=== PATIENT | female | born 1955 | race Caucasian/White ===

== ENCOUNTER 2021-06-25 16:00 | Emergency (ER) | payer MEDICARE ==
[2021-06-25] MEDS ORDERED: TORAdol 30 mg Injection IV ONE (16:37)
--- NOTE | 2021-06-25 16:44 | ERPHSYRPT ---
- History of Present Illness Time Seen by Provider: 06/25/21 16:20 Historian: patient Exam Limitations: no limitations Patient Subjective Stated Complaint: R flank pain Triage Nursing Assessment: pt to ED c/o R flank pain 8/10 onset today at PCP of [facility]. was referred to ED if pain persisted or increased for evaluation. hematuria noted on initial urine sample given. abd tender to palp on RLQ. denies Hx kidney stones. nausea without emesis. denies bowel issues. Physician History: Patient is a 66-year-old female presents to our ED as a referral from her primary care doctor for any kidney stone work-up. Patient states she was at her primary care doctor's office today for routine visit. While in the office she developed acute onset right lower quadrant pain associated with hematuria. Patient has a history of kidney stones and states her symptoms are the same. Pain described as an ache that is localized to right lower quadrant. No radiation. Pain rated 8 out of 10. No specific worsening or improving factors. No associated trauma. No fever. Patient is nauseous. No vomiting. No diarrhea. No rash. Symptoms are mild to moderate in intensity. Patient voices no other complaints or concerns at this time. Timing/Duration: today Activities at Onset: none Quality: aching Abdominal Pain Onset Location: RUQ Pain Radiation: no radiation Severity of Pain-Max: moderate Severity of Pain-Current: mild Modifying Factors: Improves With: nothing Associated Symptoms: nausea, No chest pain, No diarrhea, No fever/chills, No headache, No heartburn, No shortness of breath, No syncope, No vomiting Previous symptoms: same symptoms as today Allergies/Adverse Reactions: No Known Drug Allergies Allergy (Unverified 06/25/21 16:41) Home Medications: Amlodipine Besylate 5 mg [Norvasc 5 mg] 5 mg PO DAILY 06/25/21 [History] Citalopram Hydrobromide [Citalopram HBr] 10 mg PO DAILY 06/25/21 [History] Metoprolol Tartrate 50 mg [Lopressor 50 MG] 50 mg PO DAILY 06/25/21 [History] Rosuvastatin Calcium [Crestor] 5 mg PO DAILY 06/25/21 [History] Topiramate [Topiramate ER] 50 mg PO DAILY 06/25/21 [History] Hx Tetanus, Diphtheria Vaccination/Date Given: No Hx Influenza Vaccination/Date Given: Yes Hx Pneumococcal Vaccination/Date Given: No Immunizations Up to Date: No Travel Risk - International Travel Have you traveled outside of the country in past 3 weeks: No - Coronavirus Screening Are you exhibiting any of the following symptoms?: No Close contact with a COVID-19 positive Pt in past 14-21 Days: No - Vaccine Status Have you recieved a Covid-19 vaccination: Yes Scientific Diver: Moderna - Vaccination Dates Date of 2cond Vaccination (if applicable): december - Review of Systems Constitutional: No Symptoms, No Fever, No Chills Eyes: No Symptoms Ears, Nose, & Throat: No Symptoms Respiratory: No Symptoms, No Cough, No Dyspnea Cardiac: No Symptoms, No Chest Pain, No Edema, No Syncope Abdominal/Gastrointestinal: No Symptoms, No Abdominal Pain, No Nausea, No Vomiting, No Diarrhea Genitourinary Symptoms: No Symptoms, No Dysuria Musculoskeletal: No Symptoms, No Back Pain, No Neck Pain Skin: No Symptoms, No Rash Neurological: No Symptoms, No Dizziness, No Focal Weakness, No Sensory Changes Psychological: No Symptoms Endocrine: No Symptoms Hematologic/Lymphatic: No Symptoms Immunological/Allergic: No Symptoms All Other Systems: Reviewed and Negative - Past Medical History Pertinent Past Medical History: Yes Cardiac History: Coronary Artery Disease, High Cholesterol, Hypertension Psycho-Social History: Anxiety, Depression - Past Surgical History Past Surgical History: Yes Cardiac: Cardiac Catheterization, Cardiac Stent Female Surgical History: Hysterectomy Other Surgical History: skin ca removal, sinus surgery - Social History Smoking Status: Never smoker Exposure to second hand smoke: No Drug Use: none Patient Lives Alone: No - Female History Hx Now: No - Nursing Vital Signs Nursing Vital Signs: Initial Vital Signs Temperature 97.0 F 06/25/21 16:06 Pulse Rate 55 L 06/25/21 16:06 Respiratory Rate 20 06/25/21 16:06 Blood Pressure 159/75 06/25/21 16:06 O2 Sat by Pulse Oximetry 100 06/25/21 16:06 Pain Scale Pain Intensity 6 - Physical Exam General Appearance: no apparent distress, alert Eye Exam: PERRL/EOMI, eyes nml inspection Ears, Nose, Throat Exam: normal ENT inspection, pharynx normal, moist mucous membranes Neck Exam: normal inspection, non-tender, supple, full range of motion Respiratory Exam: normal breath sounds, lungs clear, airway intact, No respiratory distress Cardiovascular Exam: regular rate/rhythm, normal heart sounds, normal peripheral pulses Gastrointestinal/Abdomen Exam: soft, normal bowel sounds, tenderness (Tenderness right lower quadrant.), No mass, No pulsatile mass Back Exam: normal inspection, normal range of motion, No CVA tenderness, No vertebral tenderness Extremity Exam: normal inspection, normal range of motion, pelvis stable Neurologic Exam: alert, oriented x 3, cooperative, normal mood/affect, sensation nml, No motor deficits Skin Exam: normal color, warm, dry Lymphatic Exam: No adenopathy SpO2 Interpretation: normal SpO2: 100 O2 Delivery: Room Air - Course Nursing assessment & vital signs reviewed: Yes - CT Exams Abdomen/Pelvis CT Interpretation: Tele-radiologist Report (No comps. 3 mm proximal right ureteral stone. Stone is at the level of L3 with mild hydronephrosis mild renal edema. Small hiatal hernia and mild diffuse fecal stasis.) Ordered Tests: Active Orders 24 hr Category Date Time Status IV Insertion STAT Care 06/25/21 16:37 Active ABDOMEN AND PELVIS W/0 CONTRAS [CT] Stat Exams 06/25/21 16:37 Taken CBC W DIFF Stat Lab 06/25/21 16:52 Completed CMP Stat Lab 06/25/21 16:52 Completed CULTURE,URINE Stat Lab 06/25/21 16:40 Received UA W/RFX UR CULTURE Stat Lab 06/25/21 16:40 Completed Medication Summary Generic Name Dose Route Start Last Admin Trade Name Freq PRN Reason Stop Dose Admin Sodium Chloride 1,000 mls @ 100 mls/hr 06/25/21 16:45 06/25/21 16:57 Sodium Chloride 0.9% 1000 Ml IV 07/25/21 16:44 100 mls/hr .Q10H ADAM Administration Ceftriaxone Sodium/Dextrose 1 g in 50 mls @ 100 mls/hr 06/25/21 20:23 Rocephin 1 Gm-D5w 50 Ml Bag IV 06/25/21 20:52 STAT STA Discontinued Medications Generic Name Dose Route Start Last Admin Trade Name Freq PRN Reason Stop Dose Admin Ketorolac Tromethamine 30 mg 06/25/21 16:37 06/25/21 16:57 Ketorolac Tromethamine 30 Mg/Ml Inj IV 06/25/21 16:38 30 mg STAT ONE Administration Ketorolac Tromethamine Confirm 06/25/21 16:52 Ketorolac Tromethamine 30 Mg/Ml Inj Administered 06/25/21 16:53 Dose 30 mg .ROUTE .STK-MED ONE Morphine Sulfate 4 mg 06/25/21 19:07 06/25/21 19:13 Morphine Sulfate 4 Mg/Ml Injection IV 06/25/21 19:08 4 mg STAT ONE Administration Morphine Sulfate Confirm 06/25/21 19:12 Morphine Sulfate 4 Mg/Ml Injection Administered 06/25/21 19:13 Dose 4 mg .ROUTE .STK-MED ONE Ondansetron HCl 4 mg 06/25/21 17:53 06/25/21 18:00 Ondansetron Hcl 4 Mg/2 Ml Vial IV 06/25/21 17:54 Not Given STAT ONE Ondansetron HCl 4 mg 06/25/21 17:55 06/25/21 18:01 Zofran 4 Mg/Udtablet Orally Disintegrating PO 06/25/21 17:56 4 mg STAT ONE Administration Ondansetron HCl Confirm 06/25/21 17:54 Zofran 4 Mg/Udtablet Orally Disintegrating Administered 06/25/21 17:55 Dose 4 mg .ROUTE .STK-MED ONE Lab/Rad Data: Laboratory Result Diagrams 06/25/21 16:52 06/25/21 16:52 Laboratory Results 06/25/21 06/25/21 06/25/21 Range/Units 16:52 16:52 16:40 WBC 9.2 (4.0-10.5) K/mm3 RBC 4.52 (4.1-5.4) M/mm3 Hgb 14.0 (12.0-16.0) gm/dl Hct 42.6 (35-47) % MCV 94.2 (78-100) fl MCH 31.0 (26-32) pg MCHC 32.9 (32-36) g/dl RDW 13.5 (11.5-14.0) % Plt Count 176 (150-450) K/mm3 MPV 10.4 (7.5-11.0) fl Gran % 71.0 H (36.0-66.0) % Eos # (Auto) 0.09 (0-0.5) Absolute Lymphs (auto) 2.02 (1.0-4.6) Absolute Monos (auto) 0.53 (0.0-1.3) Lymphocytes % 22.0 L (24.0-44.0) % Monocytes % 5.8 (0.0-12.0) % Eosinophils % 1.0 (0.00-5.0) % Basophils % 0.2 (0.0-0.4) % Absolute Granulocytes 6.54 (1.4-6.9) Basophils # 0.02 (0-0.4) Sodium 143 (137-145) mmol/L Potassium 3.9 (3.5-5.1) mmol/L Chloride 107 (98-107) mmol/L Carbon Dioxide 21 L (22-30) mmol/L Anion Gap 18.7 H (5-15) MEQ/L BUN 19 H (7-17) mg/dL Creatinine 0.87 (0.52-1.04) mg/dL Estimated GFR > 60.0 ML/MIN Glucose 114 H (74-106) mg/dL Calcium 11.2 H (8.4-10.2) mg/dL Total Bilirubin 0.60 (0.2-1.3) mg/dL AST 42 H (14-36) U/L ALT 34 (0-35) U/L Alkaline Phosphatase 71 (38-126) U/L Serum Total Protein 8.1 (6.3-8.2) g/dL Albumin 5.0 (3.5-5.0) g/dL Urine Color RED (YELLOW) Urine Appearance CLOUDY (CLEAR) Urine pH 7.0 (5-6) Ur Specific [place] 1.014 (1.005-1.025) Urine Protein 100 (Negative) Urine Ketones NEGATIVE (NEGATIVE) Urine Blood LARGE (0-5) Johann/ul Urine Nitrite NEGATIVE (NEGATIVE) Urine Bilirubin NEGATIVE (NEGATIVE) Urine Urobilinogen 4 (0-1) mg/dL Ur Leukocyte Esterase SMALL (NEGATIVE) Urine WBC (Auto) 51-100 (0-5) /HPF Urine RBC (Auto) >101 (0-2) /HPF U Epithel Cells (Auto) NONE (FEW) /HPF Urine Bacteria (Auto) MODERATE (NEGATIVE) /HPF Urine Culture Reflexed YES (NO) Urine Glucose NEGATIVE (NEGATIVE) mg/dL - Progress Progress: improved Progress Note: Case discussed with who advised consulting with urology. I spoke to Dr. Hansen urologist at [facility] who felt patient was appropriate for transfer. Case discussed with ED physician who accepts transfer. Plan of care discussed with patient. She agrees to transfer to [facility] for further evaluation and treatment. Patient voices no other complaints or concerns at this time. Portions of this note were created with voice recognition technology. There may be grammatical, spelling, punctuation or sound alike errors 06/25/21 20:22 - Departure Departure Disposition: Home Clinical Impression: Flank pain, UTI (urinary tract infection), Ureterolithiasis, Hydronephrosis, Hiatal hernia Condition: Stable Critical Care Time: No Referrals: FABRICE ODOM MD [Primary Care Provider] -
[2021-06-25] MEDS ORDERED: Sodium Chloride 0.9% 1000 ML 1,000 ML IV SCH (16:45)
[2021-06-25 16:51] LABS: Appearance CLOUDY (CLEAR); Bacteria MODERATE /HPF (NEGATIVE); Bilirubin NEGATIVE (NEGATIVE); Blood LARGE Ery/ul (0-5); Glucose NEGATIVE (NEGATIVE); Ketones NEGATIVE (NEGATIVE); Leukocyte Esterase SMALL (NEGATIVE); Nitrite NEGATIVE (NEGATIVE); Protein,Urine Dip 100 (Negative); Specific Gravity 1.014 (1.005-1.025); Urobilinogen 4 mg/dL (0-1); WBC 51-100 /HPF (0-5)
[2021-06-25 16:52] LABS: RBC >101 /HPF (0-2)
[2021-06-25] MEDS ORDERED: Sodium Chloride 0.9% 1000 ML 1,000 ML ONE (16:52)
[2021-06-25] MEDS ORDERED: TORAdol 30 mg Injection ONE (16:52)
[2021-06-25 16:59] LABS: Absolute Neutrophil Ct (ANC) 6.54 (1.4-6.9); BASOPHIL % 0.2 % (0.0-0.4); Basophil (Absolute #) 0.02 (0-0.4); Eosinophil (Absolute #) 0.09 (0-0.5); Hematocrit 42.6 % (35-47); Lymphocyte (Absolute #) 2.02 (1.0-4.6); Mean Cell Volume 94.2 fl (78-100); Mean Corpuscular Hgb Concent. 32.9 g/dl (32-36); Mean Platelet Volume 10.4 fl (7.5-11.0); Monocyte (Absolute #) 0.53 (0.0-1.3); Monocytes % 5.8 % (0.0-12.0); Platelet Count 176 K/mm3 (150-450); Red Blood Count 4.52 M/mm3 (4.1-5.4); Red Cell Distribution Width 13.5 % (11.5-14.0); White Blood Count 9.2 K/mm3 (4.0-10.5)
[2021-06-25 17:12] LABS: ALKALINE PHOSPHATASE 71 U/L (38-126); ANION GAP 18.7 MEQ/L (5-15); BLOOD UREA NITROGEN 19 mg/dL (7-17); CHLORIDE 107 mmol/L (98-107); Calcium 11.2 mg/dL (8.4-10.2); Carbon Dioxide 21 mmol/L (22-30); Creatinine 1 0.87 mg/dL (0.52-1.04); EST GLOMERULAR FILTRATION RATE > 60.0 ML/MIN; Glucose 114 mg/dL (74-106); Potassium 3.9 mmol/L (3.5-5.1); SGOT/AST 42 U/L (14-36); SGPT/ALT 34 U/L (0-35); SODIUM 143 mmol/L (137-145); Total Protein 8.1 g/dL (6.3-8.2)
[2021-06-25] MEDS ORDERED: Zofran 4 MG/2 ML VIAL IV ONE (17:53)
[2021-06-25] MEDS ORDERED: ZOFRAN ODT 4 MG ONE (17:54)
[2021-06-25] MEDS ORDERED: ZOFRAN ODT 4 MG PO ONE (17:55)
[2021-06-25] MEDS ORDERED: MORPHINE SULFATE 4 MG INJ IV ONE (19:07)
[2021-06-25] MEDS ORDERED: MORPHINE SULFATE 4 MG INJ ONE (19:12)
[2021-06-25 19:59] VITALS: O2SAT 100
[2021-06-25 20:20] VITALS: PULSE 68
[2021-06-25] MEDS ORDERED: ROCEPHIN 1 Gm-D5w 50 ml Bag** 1 G/50 ML IVPB IV STA (20:23)
[2021-06-25] MEDS ORDERED: ROCEPHIN 1 Gm-D5w 50 ml Bag** 1 G/50 ML IVPB IV ONE (21:09)
[2021-06-25 21:22] VITALS: BP 147/70
--- NOTE | 2021-06-26 08:39 | XRAY ---
Indication: Right flank pain and hematuria. Multiple contiguous axial images obtained through the abdomen and pelvis without contrast using renal stone protocol. Comparison: None Lung bases demonstrates tiny right middle lobe calcified granuloma and mild left base subsegmental atelectasis/scarring. No infiltrate or effusion. Heart is not enlarged. Small hiatal hernia. There is a 3 mm proximal right ureter calculus, approximately L3 level. Mild right-sided hydronephrosis and renal edema consistent with obstructive uropathy. No free fluid/air. Noncontrasted stomach and bowel loops appear nonobstructed. Mild diffuse scattered colonic fecal debris throughout. Incidental splenic calcified granuloma and hysterectomy. Remaining liver, gallbladder, pancreas, spleen, adrenal glands, kidneys, ureters, and bladder are unremarkable for noncontrast exam. Mild scattered aortoiliac calcifications without AAA. Osseous structures intact with mild osteopenia and mild/moderate degenerative changes throughout the thoracolumbar spine and mild bilateral hip degenerative arthropathy. Impression: 1. 3 mm proximal right ureter calculus producing partial obstructive uropathy. 2. Incidental small hiatal hernia, diffuse fecal stasis, chronic bony findings, and old granulomatous disease.
== END 2021-06-25 21:30 | disposition short-term general hospital (02) ==
LOC: ED 16:00
DX: R10.9 Unspecified abdominal pain (principal); N39.0 Urinary tract infection, site not specified; N13.2 Hydronephrosis with renal and ureteral calculous obstruction; K44.9 Diaphragmatic hernia without obstruction or gangrene; I10 Essential (primary) hypertension; I25.10 Atherosclerotic heart disease of native coronary artery without angina pectoris; E78.00 Pure hypercholesterolemia, unspecified; Z79.899 Other long term (current) drug therapy
CPT/HCPCS: 36000; 36415; 71046; 74176; 80053; 81001; 82550; 85025; 85379; 87077; 87086; 87186; 96374; 96375; 99285; J0696; J1885; J2270; Q0162

== ENCOUNTER 2023-04-13 11:12 | Emergency (ER) | payer MEDICARE ==
[2023-04-13 11:32] VITALS: TEMP 97.1
[2023-04-13] MEDS ORDERED: Sodium Chloride 0.9% 1000 ML 1,000 ML IV STA (11:37)
--- NOTE | 2023-04-13 11:38 | ERPHSYRPT ---
- History of Present Illness Time Seen by Provider: 04/13/23 11:30 Source: patient, family, old records Exam Limitations: no limitations Patient Subjective Stated Complaint: Pt states that beginning last night she was hot then cold and feeling like she is having difficulty breathing as if she can't get enough air Triage Nursing Assessment: Pt was brought to the ER by her , hypertensive, tachycardic, denies pain, still feels like she can't catch her breath, denies any chest pain, hx of heart stents, hx of cancer in her back, pt is currently doing chemo for the past year and had a treatment on Friday for multimyeloma, pulses normal, skin n/w/d, denies coughing, denies any other resp issues Physician History: This is a 68-year-old white female patient of Dr. Odom who has been diagnosed with multiple myeloma and had lab work performed Friday prior to this evaluation which, per patient report, looked good. She has been on chemotherapy to treat this. Her provided independent, additional history. She has an infusion scheduled for next week. It is to help boost her immune system. They could not tell us what the medication is. Patient, yesterday, was feeling fairly weak. She was feeling hot and cold. She denies chest pain. She denies shortness of breath. Her biggest complaint is weakness. Patient has a history of hypertension, coronary artery disease (cardiac stent) hyperlipidemia. She has no abdominal pain. She has had no nausea vomiting or diarrhea. She is on Plavix Timing/Duration: yesterday Severity: mild Associated Symptoms: weakness, No nausea, No vomiting, No abdominal pain, No shortness of breath, No chest pain, No headaches Allergies/Adverse Reactions: No Known Drug Allergies Allergy (Verified 04/13/23 11:30) Home Medications: Citalopram Hydrobromide [Citalopram HBr] 20 mg PO DAILY 06/25/21 [History] ARIPiprazole [Aripiprazole] 5 mg PO DAILY 04/13/23 [History] Clopidogrel Bisulfate [PLAVIX Tablet] 75 mg PO DAILY 04/13/23 [History] Furosemide 20 mg [Lasix 20 mg] 20 mg PO DAILY 04/13/23 [History] Metoprolol Tartrate 25 mg [Lopressor 25MG Tab] 25 mg PO DAILY 04/13/23 [History] PANTOPRAZOLE 40 mg Tablet [Protonix 40MG Tablet] 40 mg PO QAM 04/13/23 [History] Potassium Chloride 20 meq PO DAILY 04/13/23 [History] Rosuvastatin Calcium 0.5 tab PO DAILY 04/13/23 [History] Hx Tetanus, Diphtheria Vaccination/Date Given: No Hx Influenza Vaccination/Date Given: Yes Hx Pneumococcal Vaccination/Date Given: No Travel Risk - International Travel Have you traveled outside of the country in past 3 weeks: No - Coronavirus Screening Are you exhibiting any of the following symptoms?: No Close contact with a COVID-19 positive Pt in past 14-21 Days: No - Vaccine Status Have you recieved a Covid-19 vaccination: Yes Filbert Grower: Moderna - Vaccination Dates Date of 2cond Vaccination (if applicable): 2020 - Review of Systems Constitutional: Weakness, Other (Alternating sensation of hot and cold although she has been afebrile) Eyes: No Symptoms Ears, Nose, & Throat: No Symptoms Respiratory: No Symptoms Cardiac: No Symptoms Abdominal/Gastrointestinal: No Symptoms Genitourinary Symptoms: No Symptoms Musculoskeletal: No Symptoms Skin: No Symptoms Neurological: No Symptoms Psychological: No Symptoms Endocrine: No Symptoms Hematologic/Lymphatic: No Symptoms Immunological/Allergic: No Symptoms All Other Systems: Reviewed and Negative - Past Medical History Pertinent Past Medical History: Yes Neurological History: No Pertinent History Cardiac History: Other Respiratory History: No Pertinent History Endocrine Medical History: Other Musculoskeletal History: Osteoarthritis Psycho-Social History: Anxiety, Depression Other Medical History: STINT IN HER HEART OF FALL OF 2020, PAIN PRESENTED ALONG R LATERAL CHEST WALL. HAD A TEST THAT SHOWED "BRUSING", FURTHER TEST SHOWED A TUMOR. NECK PAIN. KIDNEY STONES. - Past Surgical History Past Surgical History: Yes Cardiac: Cardiac Catheterization, Cardiac Stent Female Surgical History: Hysterectomy Other Surgical History: skin ca removal, sinus surgery - Social History Smoking Status: Never smoker Exposure to second hand smoke: No Drug Use: none Patient Lives Alone: No - Nursing Vital Signs Nursing Vital Signs: Initial Vital Signs Temperature 97.1 F 04/13/23 11:19 Pulse Rate 107 H 04/13/23 11:19 Blood Pressure 145/94 04/13/23 11:19 O2 Sat by Pulse Oximetry 100 04/13/23 11:19 Pain Scale Pain Intensity 0 - Physical Exam General Appearance: no apparent distress, alert, anxiety Eye Exam: PERRL/EOMI, eyes nml inspection Ears, Nose, Throat Exam: normal ENT inspection, moist mucous membranes Neck Exam: normal inspection, non-tender, supple, full range of motion Respiratory Exam: normal breath sounds, lungs clear, airway intact, No chest te nderness, No respiratory distress Cardiovascular Exam: tachycardia Gastrointestinal/Abdomen Exam: soft, normal bowel sounds, No tenderness Pelvic Exam: not done Rectal Exam: not done Back Exam: normal inspection, normal range of motion, No CVA tenderness, No vertebral tenderness Extremity Exam: normal inspection, normal range of motion, pelvis stable Neurologic Exam: alert, oriented x 3, cooperative, sign out clerk II-XII nml as tested, normal mood/affect, nml cerebellar function, nml station & gait, sensation nml Skin Exam: normal color, warm, dry Lymphatic Exam: No adenopathy SpO2 Interpretation: normal SpO2: 100 O2 Delivery: Room Air - Course Nursing assessment & vital signs reviewed: Yes EKG Interpreted by Me: RATE (88), Sinus Rhythm, Left [place] Deviation, NORMAL INTERVALS (Borderline), NORMAL QRS, NORMAL ST-T, Other (No acute ischemic changes on today's twelve-lead EKG.) Ordered Tests: Active Orders 24 hr Category Date Time Status List Of First Job Ideas STAT Care 04/13/23 11:38 Active EKG-ER Only STAT Care 04/13/23 11:37 Active IV Insertion STAT Care 04/13/23 11:37 Active Pulse Oximetry (ED) STAT Care 04/13/23 11:37 Active CHEST 1 VIEW (PORTABLE) Stat Exams 04/13/23 12:43 Taken BLOOD CULTURE Stat Lab 04/13/23 12:00 Received CBC W DIFF Stat Lab 04/13/23 11:51 Completed CMP Stat Lab 04/13/23 11:51 Completed D-DIMER QUANTITATIVE Stat Lab 04/13/23 11:51 Completed Lactic Acid Stat Lab 04/13/23 11:37 Completed MONO SCREEN Stat Lab 04/13/23 11:51 Completed NT PRO BNPII Stat Lab 04/13/23 11:51 Completed TROPONIN Q4H Lab 04/13/23 11:51 Completed TROPONIN Q4H Lab 04/13/23 15:45 Ordered TROPONIN Q4H Lab 04/13/23 19:45 Ordered UA W/RFX UR CULTURE Stat Lab 04/13/23 13:07 Completed Medication Summary Discontinued Medications Generic Name Dose Route Start Last Admin Trade Name Piper PRN Reason Stop Dose Admin Sodium Chloride 1,000 mls @ 999 mls/hr 04/13/23 11:37 04/13/23 11:58 Sodium Chloride 0.9% 1000 Ml IV 04/13/23 12:37 999 mls/hr .Q1H1M STA Administration Sodium Chloride Confirm 04/13/23 11:57 Sodium Chloride 0.9% 1000 Ml Administered 04/13/23 11:58 Dose 1,000 mls @ ud .ROUTE .STK-MED ONE Lab/Rad Data: Laboratory Result Diagrams 04/13/23 11:51 04/13/23 11:51 Laboratory Results 04/13/23 04/13/23 04/13/23 Range/Units 13:07 12:00 11:51 WBC (4.0-10.5) x10^3/uL RBC (4.1-5.4) x10^6/uL Hgb (12.0-16.0) g/dL Hct (35-47) % MCV (78-100) fL MCH (26-32) pg MCHC (32-36) g/dL RDW (11.5-14.0) % Plt Count (150-450) x10^3/uL MPV (7.5-11.0) fL Gran % (36.0-66.0) % Immature Gran % (Auto) (0.00-0.4) % Nucleat RBC Rel Count (0.00-0.1) % Eos # (Auto) (0-0.5) x10^3/uL Immature Gran # (Auto) (0.00-0.03) x10^3u/L Absolute Lymphs (auto) (1.0-4.6) x10^3/uL Absolute Monos (auto) (0.0-1.3) x10^3/uL Absolute Nucleated RBC (0.00-0.01) x10^3u/L Lymphocytes % (24.0-44.0) % Monocytes % (0.0-12.0) % Eosinophils % (0.00-5.0) % Basophils % (0.0-0.4) % Absolute Granulocytes (1.4-6.9) x10^3/uL Basophils # (0-0.4) x10^3/uL D-Dimer (0.0-0.50) mg/L Sodium (137-145) mmol/L Potassium (3.5-5.1) mmol/L Chloride (98-107) mmol/L Carbon Dioxide (22-30) mmol/L Anion Gap (5-15) MEQ/L BUN (7-17) mg/dL Creatinine (0.52-1.04) mg/dL Estimated GFR ML/MIN Glucose (74-106) mg/dL Lactic Acid (0.4-2.0) Calcium (8.4-10.2) mg/dL Total Bilirubin (0.2-1.3) mg/dL AST (14-36) U/L ALT (0-35) U/L Alkaline Phosphatase (38-126) U/L Troponin I (0.000-0.034) ng/mL NT-Pro-B Natriuret Pep (<300) pg/mL Serum Total Protein (6.3-8.2) g/dL Albumin (3.5-5.0) g/dL Urine Color Yellow (Yellow) Urine Appearance Clear (Clear) Urine pH 5.5 (4.6-8.0) Ur Specific [place] 1.015 (1.005-1.030) Urine Protein Negative (Negative) Urine Glucose (UA) Negative (Negative) mg/dL Urine Ketones Negative (Negative) Urine Blood Large A (Negative) Urine Nitrite Negative (Negative) Urine Bilirubin Negative (Negative) Urine Urobilinogen 0.2 (0.2) mg/dL Ur Leukocyte Esterase Negative (Negative) U Hyaline Cast (Auto) NONE SEEN (0-2) /LPF Urine Microscopic RBC 11-20 A (0-5) /HPF Urine Microscopic WBC 0-2 (0-5) /HPF Ur Epithelial Cells None Seen (None Seen) /HPF Urine Bacteria None Seen (None Seen) /HPF Urine Culture Reflexed NO (NO) Monoscreen NEGATIVE (NEGATIVE) Influenza Type A Ag NEGATIVE (NEGATIVE) Influenza Type B Ag NEGATIVE (NEGATIVE) RSV (PCR) NEGATIVE (NEGATIVE) SARS-CoV-2 (PCR) NEGATIVE (NEGATIVE) 04/13/23 04/13/23 04/13/23 Range/Units 11:51 11:51 11:51 WBC (4.0-10.5) x10^3/uL RBC (4.1-5.4) x10^6/uL Hgb (12.0-16.0) g/dL Hct (35-47) % MCV (78-100) fL MCH (26-32) pg MCHC (32-36) g/dL RDW (11.5-14.0) % Plt Count (150-450) x10^3/uL MPV (7.5-11.0) fL Gran % (36.0-66.0) % Immature Gran % (Auto) (0.00-0.4) % Nucleat RBC Rel Count (0.00-0.1) % Eos # (Auto) (0-0.5) x10^3/uL Immature Gran # (Auto) (0.00-0.03) x10^3u/L Absolute Lymphs (auto) (1.0-4.6) x10^3/uL Absolute Monos (auto) (0.0-1.3) x10^3/uL Absolute Nucleated RBC (0.00-0.01) x10^3u/L Lymphocytes % (24.0-44.0) % Monocytes % (0.0-12.0) % Eosinophils % (0.00-5.0) % Basophils % (0.0-0.4) % Absolute Granulocytes (1.4-6.9) x10^3/uL Basophils # (0-0.4) x10^3/uL D-Dimer 0.35 (0.0-0.50) mg/L Sodium 140 (137-145) mmol/L Potassium 4.4 (3.5-5.1) mmol/L Chloride 102 (98-107) mmol/L Carbon Dioxide 27 (22-30) mmol/L Anion Gap 15.4 H (5-15) MEQ/L BUN 26 H (7-17) mg/dL Creatinine 0.65 (0.52-1.04) mg/dL Estimated GFR > 60.0 ML/MIN Glucose 132 H (74-106) mg/dL Lactic Acid (0.4-2.0) Calcium 10.1 (8.4-10.2) mg/dL Total Bilirubin 0.80 (0.2-1.3) mg/dL AST 30 (14-36) U/L ALT 31 (0-35) U/L Alkaline Phosphatase 46 (38-126) U/L Troponin I < 0.012 (0.000-0.034) ng/mL NT-Pro-B Natriuret Pep 35.6 (<300) pg/mL Serum Total Protein 7.3 (6.3-8.2) g/dL Albumin 4.7 (3.5-5.0) g/dL Urine Color (Yellow) Urine Appearance (Clear) Urine pH (4.6-8.0) Ur Specific [place] (1.005-1.030) Urine Protein (Negative) Urine Glucose (UA) (Negative) mg/dL Urine Ketones (Negative) Urine Blood (Negative) Urine Nitrite (Negative) Urine Bilirubin (Negative) Urine Urobilinogen (0.2) mg/dL Ur Leukocyte Esterase (Negative) U Hyaline Cast (Auto) (0-2) /LPF Urine Microscopic RBC (0-5) /HPF Urine Microscopic WBC (0-5) /HPF Ur Epithelial Cells (None Seen) /HPF Urine Bacteria (None Seen) /HPF Urine Culture Reflexed (NO) Monoscreen (NEGATIVE) Influenza Type A Ag (NEGATIVE) Influenza Type B Ag (NEGATIVE) RSV (PCR) (NEGATIVE) SARS-CoV-2 (PCR) (NEGATIVE) 04/13/23 04/13/23 Range/Units 11:51 11:37 WBC 5.8 (4.0-10.5) x10^3/uL RBC 4.84 (4.1-5.4) x10^6/uL Hgb 14.8 (12.0-16.0) g/dL Hct 45.4 (35-47) % MCV 93.8 (78-100) fL MCH 30.6 (26-32) pg MCHC 32.6 (32-36) g/dL RDW 12.0 (11.5-14.0) % Plt Count 196 (150-450) x10^3/uL MPV 10.5 (7.5-11.0) fL Gran % 73.8 H (36.0-66.0) % Immature Gran % (Auto) 0.3 (0.00-0.4) % Nucleat RBC Rel Count 0.0 (0.00-0.1) % Eos # (Auto) 0.11 (0-0.5) x10^3/uL Immature Gran # (Auto) 0.02 (0.00-0.03) x10^3u/L Absolute Lymphs (auto) 0.76 L (1.0-4.6) x10^3/uL Absolute Monos (auto) 0.61 (0.0-1.3) x10^3/uL Absolute Nucleated RBC 0.00 (0.00-0.01) x10^3u/L Lymphocytes % 13.1 L (24.0-44.0) % Monocytes % 10.6 (0.0-12.0) % Eosinophils % 1.9 (0.00-5.0) % Basophils % 0.3 (0.0-0.4) % Absolute Granulocytes 4.26 (1.4-6.9) x10^3/uL Basophils # 0.02 (0-0.4) x10^3/uL D-Dimer (0.0-0.50) mg/L Sodium (137-145) mmol/L Potassium (3.5-5.1) mmol/L Chloride (98-107) mmol/L Carbon Dioxide (22-30) mmol/L Anion Gap (5-15) MEQ/L BUN (7-17) mg/dL Creatinine (0.52-1.04) mg/dL Estimated GFR ML/MIN Glucose (74-106) mg/dL Lactic Acid 1.1 (0.4-2.0) Calcium (8.4-10.2) mg/dL Total Bilirubin (0.2-1.3) mg/dL AST (14-36) U/L ALT (0-35) U/L Alkaline Phosphatase (38-126) U/L Troponin I (0.000-0.034) ng/mL NT-Pro-B Natriuret Pep (<300) pg/mL Serum Total Protein (6.3-8.2) g/dL Albumin (3.5-5.0) g/dL Urine Color (Yellow) Urine Appearance (Clear) Urine pH (4.6-8.0) Ur Specific [place] (1.005-1.030) Urine Protein (Negative) Urine Glucose (UA) (Negative) mg/dL Urine Ketones (Negative) Urine Blood (Negative) Urine Nitrite (Negative) Urine Bilirubin (Negative) Urine Urobilinogen (0.2) mg/dL Ur Leukocyte Esterase (Negative) U Hyaline Cast (Auto) (0-2) /LPF Urine Microscopic RBC (0-5) /HPF Urine Microscopic WBC (0-5) /HPF Ur Epithelial Cells (None Seen) /HPF Urine Bacteria (None Seen) /HPF Urine Culture Reflexed (NO) Monoscreen (NEGATIVE) Influenza Type A Ag (NEGATIVE) Influenza Type B Ag (NEGATIVE) RSV (PCR) (NEGATIVE) SARS-CoV-2 (PCR) (NEGATIVE) - Progress Progress: improved, re-examined Progress Note: 04/13/23 12:59 Chest x-ray was interpreted by me. There is no evidence of any acute cardiopulmonary process. 04/13/23 13:47 This patient's recall issue is 1 of moderate complexity. The level complexity and the work-up performed is based on the review of the patient's past medical history, review of medication list, review of drug allergy list, history of present illness and physical findings on examination. The work-up includes CBC, CMP, urinalysis, chest x-ray, twelve-lead EKG, D-dimer. There is hematuria present without any other acute or emergent medical issues. Patient will be discharged to home and she is to follow-up with her Counseled pt/family regarding: lab results, diagnosis, need for follow-up, rad results Medical Desision Making - Independent Historian Additional History obtained from: Spouse - Diagnostic Testing Diagnostic test were ordered, analyzed, and reviewed by me: Yes Radiological Interpretation: Interpreted by me - Risk of complications Minimal Risk: Minimal risk of morbidity - Departure Departure Disposition: Home Clinical Impression: Hematuria, Weakness Condition: Stable Critical Care Time: No Referrals: FABRICE ODOM MD [Primary Care Provider] - Follow up/PCP as directed Additional Instructions: Drink plenty of fluids. Hold any medication that is sedating. Call your primary care provider and oncologist tomorrow morning, 04/14/2023, to let them know that you were here today.
[2023-04-13] MEDS ORDERED: Sodium Chloride 0.9% 1000 ML 1,000 ML ONE (11:57)
[2023-04-13 12:20] VITALS: PULSE 99; RESP 18
[2023-04-13 12:20] LABS: Absolute Neutrophil Ct (ANC) 4.26 x10^3/uL (1.4-6.9); BASOPHIL % 0.3 % (0.0-0.4); Basophil (Absolute #) 0.02 x10^3/uL (0-0.4); Eosinophil % 1.9 % (0.00-5.0); Eosinophil (Absolute #) 0.11 x10^3/uL (0-0.5); Hematocrit 45.4 % (35-47); Hemoglobin 14.8 g/dL (12.0-16.0); IMMATURE GRAN # 0.02 x10^3u/L (0.00-0.03); IMMATURE GRAN % 0.3 % (0.00-0.4); Lymphocyte (Absolute #) 0.76 x10^3/uL (1.0-4.6); Lymphocytes % 13.1 % (24.0-44.0); Mean Cell Volume 93.8 fL (78-100); Mean Corpuscular Hemoglobin 30.6 pg (26-32); Mean Corpuscular Hgb Concent. 32.6 g/dL (32-36); Mean Platelet Volume 10.5 fL (7.5-11.0); Monocyte (Absolute #) 0.61 x10^3/uL (0.0-1.3); Monocytes % 10.6 % (0.0-12.0); Neutrophil % 73.8 % (36.0-66.0); Platelet Count 196 x10^3/uL (150-450); Red Blood Count 4.84 x10^6/uL (4.1-5.4); White Blood Count 5.8 x10^3/uL (4.0-10.5)
[2023-04-13 12:43] LABS: ALBUMIN 4.7 g/dL (3.5-5.0); ALKALINE PHOSPHATASE 46 U/L (38-126); ANION GAP 15.4 MEQ/L (5-15); BLOOD UREA NITROGEN 26 mg/dL (7-17); CHLORIDE 102 mmol/L (98-107); Calcium 10.1 mg/dL (8.4-10.2); Carbon Dioxide 27 mmol/L (22-30); Creatinine 1 0.65 mg/dL (0.52-1.04); EST GLOMERULAR FILTRATION RATE > 60.0 ML/MIN; Glucose 132 mg/dL (74-106); NT PRO BNPII 35.6 pg/mL (<300); Potassium 4.4 mmol/L (3.5-5.1); SGOT/AST 30 U/L (14-36); SGPT/ALT 31 U/L (0-35); SODIUM 140 mmol/L (137-145); Total Protein 7.3 g/dL (6.3-8.2)
[2023-04-13 12:56] LABS: INFLUENZA A NEGATIVE (NEGATIVE); INFLUENZA B NEGATIVE (NEGATIVE); RESPIRATORY SYNCTIAL VIRUS NEGATIVE (NEGATIVE); SARS-CoV-2 Xpert Express NEGATIVE (NEGATIVE)
[2023-04-13 13:01] VITALS: O2SAT 100
[2023-04-13 13:12] VITALS: BP 148/96
[2023-04-13 13:23] LABS: Appearance Clear (Clear); Bacteria None Seen /HPF (None Seen); Bilirubin Negative (Negative); Blood Large (Negative); Epithelial Cells None Seen /HPF (None Seen); Glucose, Urine Negative (Negative); Hyaline Casts NONE SEEN /LPF (0-2); Ketones Negative (Negative); Leukocyte Esterase Negative (Negative); Nitrite Negative (Negative); Ph 5.5 (4.6-8.0); Protein,Urine Dip Negative (Negative); Specific Gravity 1.015 (1.005-1.030); Urobilinogen 0.2 mg/dL (0.2); WBC 0-2 /HPF (0-5)
[2023-04-13 13:27] LABS: ADD URINE CULTURE? NO (NO)
--- NOTE | 2023-04-13 19:49 | XRAY ---
Indication: Fever and weakness. History bone cancer. Comparison: June 25, 2021. Portable chest remains inflated and clear. Heart not enlarged. Bony thorax intact with new T3-T7 hardware. No new/acute cardiopulmonary abnormalities.
== END 2023-04-13 14:00 | disposition home or self-care (01) ==
LOC: ED 11:12
DX: R31.9 Hematuria, unspecified (principal); R53.1 Weakness; C90.00 Multiple myeloma not having achieved remission; I10 Essential (primary) hypertension; E78.5 Hyperlipidemia, unspecified; Z79.02 Long term (current) use of antithrombotics/antiplatelets; Z79.899 Other long term (current) drug therapy
CPT/HCPCS: 0241U; 36000; 36415; 71045; 80053; 81001; 83605; 83880; 84484; 85025; 85379; 86308; 87040; 93005; 93041; 94760; 96360; 99284

== ENCOUNTER 2025-01-13 11:48 | Day surgery (SDC) | payer MEDICARE ==
[2025-01-13] MEDS ORDERED: Lactated Ringers 1,000 ML IV ONE (12:25)
[2025-01-13] MEDS: Lactated Ringers 1,000 ML IV ONE (12:30)
[2025-01-13] MEDS: CEFAZOLIN 2 GM/100 ML NaCl 2 GM/100 ML IVPB IV SCH (12:30)
[2025-01-13 13:30] LABS: ANION GAP 14.6 MEQ/L (5-15); Calcium 10.1 mg/dL (8.4-10.2); Creatinine 1 0.89 mg/dL (0.52-1.04); EST GLOMERULAR FILTRATION RATE 70.6 ML/MIN; Potassium 4.5 mmol/L (3.5-5.1)
[2025-01-13] MEDS ORDERED: XYLOCAINE 1% HCL 20 ML MDV ONE (13:42)
[2025-01-13] MEDS ORDERED: SUBLIMAZE 100 MCG/2 ML ONE (14:24)
[2025-01-13] MEDS ORDERED: Xylocaine-Mpf 2% 5 Ml Vial ONE (14:24)
[2025-01-13] MEDS ORDERED: propofoL IV ONE (14:24)
[2025-01-13] MEDS ORDERED: Versed 2 MG/2 ML Injection ONE (14:24)
[2025-01-13] MEDS ORDERED: Sensorcaine 0.25% 10 ML ONE (15:06)
[2025-01-13 16:11] VITALS: BP 154/87; PULSE 71; RESP 18; TEMP 98; O2SAT 99
--- NOTE | 2025-01-13 16:19 | XRAY ---
Indication: Port placement. Intraoperative fluoroscopy provided for 12 seconds. 2 digital spot images submitted for interpretation demonstrates left Port-A-Cath with tip projecting over SVC. Correlate with intraoperative findings/report. Incidental incompletely visualized multilevel thoracic hardware and vertebroplasty.
--- NOTE | 2025-01-14 09:48 | OP ---
SURGERY DATE/TIME: 01/13/2025 [id number] PREOPERATIVE DIAGNOSIS: Need for intravenous access. POSTOPERATIVE DIAGNOSIS: Need for intravenous access. PROCEDURE: Left subclavian port insertion with fluoroscopic interpretation. SURGEON: Paul Cunha MD ANESTHESIA: IV and local anesthesia. PATIENT CONDITION: Stable. COMPLICATIONS: None. SPECIMENS: None. INDICATIONS: The patient is referred from Oncology for need for a port for access. Patient wants to continue with that. Risk of infection, bleeding, injury to nearby structures discussed. FINDINGS: First stick tip of the cav-atrial junction opened easily. DESCRIPTION OF PROCEDURE AND FINDINGS: Patient brought to the operating room. Routinely positioned, prepped, and draped. Time-out performed. She received preoperative antibiotic. The local anesthetic was injected to the left subclavian stick site. Ludwig needle advanced in these. There is dark brown pulsatile return of blood. Wire was threaded easily, confirmed with fluoroscopy. The pocket site anesthetized with local, excised, developed. Catheter tunneled. Ben dilator placed under fluoro. Catheter inserted, confirmed with fluoroscopy cut and sized, attached to the port. Final imagine of the tip of the catheter at the cav-atrial junction as well as the rest of the catheter without packs. Deep dermal with 3-0 Vicryl. Skin was closed with 4-0 Vicryl sutures. Steri-Strips and sterile dressings applied. All counts were correct. Patient tolerated the procedure well. Port was okayed to use immediately.
== END 2025-01-13 16:22 | disposition home or self-care (01) ==
LOC: SDC 11:48
PROVIDERS: ATTEND Surgery
DX: Z45.2 Encounter for adjustment and management of vascular access device (principal); I10 Essential (primary) hypertension; C90.30 Solitary plasmacytoma not having achieved remission
CPT/HCPCS: 36415; 77001; 80048; 93005; J0690; J1642; J2250; J2704; J3010